=== PATIENT | male | born 1965 | race Caucasian/White ===

== ENCOUNTER 2021-04-08 09:07 | Emergency (ER) | payer BC, OTHER ==
[~2021-04-08] VITALS: Ht 175.3 cm; Wt 108.9 kg
[2021-04-08 10:22] LABS: ABSOLUTE NEUTROPHILS 5.1 thou/uL (1.4-8.2); BASOPHILS 0.9 % (0.0-2.0); HEMATOCRIT 44.4 % (42.0-52.0); HEMOGLOBIN 14.7 gm/dL (14.0-18.0); LYMPHOCYTES 18.1 % (24.0-44.0); MCH 28.4 pg (26.0-34.0); MONOCYTES 7.1 % (1.0-8.0); PLATELET COUNT 191 thou/uL (150-400); POLYS 70.9 % (36.0-66.0); RBC 5.16 mil/uL (4.50-6.00); RDW 13.3 % (10.5-14.5); WBC 7.2 thou/uL (4.0-11.0)
[2021-04-08 10:36] LABS: ANION GAP 6 mmol/L (7-16); BUN 25 mg/dL (7-18); CALCIUM 8.6 mg/dL (8.5-10.1); CHLORIDE 108 mmol/L (98-107); CO2 28 mmol/L (21-32); CREATININE 0.9 mg/dL (0.7-1.3); GLUCOSE 162 mg/dL (74-106); POTASSIUM 4.2 mmol/L (3.5-5.1); SODIUM 142 mmol/L (136-145)
[2021-04-08 13:51] VITALS: BP 135/74
--- NOTE | 2021-04-08 15:42 | EKG ---
[place] [address] [address] [employer] [address] ELECTROCARDIOGRAM REPORT Name: ANIKA HARRIS Room #: DEP [facility] [id number] Admission: 04/08/21 Attend Phys: Discharge: 04/08/21 Date of : 63 Report #: [id number] [facility] ED Test Date: 2021-04-08 Test Time: 09:21:58 Pat Name: ANIKA HARRIS Department: Room: Gender: Window Decorator: PETAR : 1965 Requested By: Pradeep Brooks Order Number: [id number] MD: Enrike Lepe Measurements Intervals [place] Rate: 73 P: 54 ID: [id number] QRS: 20 QRSD: 82 T: 47 QT: 387 QTc: 427 Interpretive Statements Sinus arrhythmia Ventricular premature complex Low voltage, precordial leads No previous ECG available for comparison Electronically Signed On 04-08-2021 15:41:58 CDT by Enrike Lepe [email or web address] <ELECTRONICALLY SIGNED> By: Enrike Lepe MD, [facility] 04/08/21 1541 0921 0 Enrike Lepe MD, FACTrina /EPI
--- NOTE | 2021-04-08 15:48 | EKG ---
[place] [address] [facility] [place] [address] ELECTROCARDIOGRAM REPORT Name: ANIKA HARRIS [facility]: [facility] [id number] Admission: 04/08/21 Attend Phys: Discharge: 04/08/21 Date of : 63 Report #: [id number] [facility] ED Test Date: 2021-04-08 Test Time: 09:41:45 Pat Name: ANIKA HARRIS Department: Room: Gender: Dixonac Operator: IG : 1965 Requested By: Pradeep Brooks Order Number: [id number] MD: Enrike Lepe Measurements Intervals [place] Rate: 75 P: 127 [place]: 142 QRS: 151 QRSD: 87 T: 132 QT: 386 QTc: 432 Interpretive Statements Right and left arm electrode reversal, interpretation assumes no reversal Sinus rhythm No previous ECG available for comparison Electronically Signed On 04-08-2021 15:47:46 CDT by Enrike Lepe [email or web address] <ELECTRONICALLY SIGNED> By: Enrike Lepe MD, [facility] 04/08/21 1547 0941 0941 Enrike Lepe MD, FACC /EPI
--- NOTE | 2021-04-08 15:48 | EKG ---
[place] [address] [facility] [place] [address] ELECTROCARDIOGRAM REPORT Name: ANIKA HARRIS [facility] #: [facility] [id number] Admission: 04/08/21 Attend Phys: Discharge: 04/08/21 Date of : 63 Report #: [id number] [facility] ED Test Date: 2021-04-08 Test Time: 12:01:35 Pat Name: ANIKA HARRIS Department: Room: Gender: M Outpatient Coder: brody : 1965 Requested By: Pradeep Brooks Order Number: [id number] MD: Enrike Lepe Measurements Intervals [place] Rate: 68 P: 41 NC: 133 QRS: 11 QRSD: 82 T: 43 QT: 396 QTc: 422 Interpretive Statements Sinus rhythm Low voltage, precordial leads Compared to ECG 04/08/2021 09:41:45 Low QRS voltage now present Myocardial infarct finding no longer present Electronically Signed On 04-08-2021 15:48:18 CDT by Enrike Lepe [email or web address] <ELECTRONICALLY SIGNED> By: Enrike Lepe MD, [facility] 04/08/21 1548 1200 00 Enrike Lepe MD, FACC /EPI
== END 2021-04-08 13:52 | disposition home or self-care (01) ==
LOC: ER 09:07
PROVIDERS: Student in an Organized Health Care Education/Training Program
DX: R07.89 Other chest pain (principal); Z91.09 Other allergy status, other than to drugs and biological substances